=== PATIENT | female | born 1985 | race Caucasian/White ===

== ENCOUNTER 2020-09-15 12:38 | Inpatient (IN) ==
[2020-09-15] MEDS ORDERED: Betamethasone Acet/SodPhos 30 MG/5 ML VIAL IM SCH (12:45)
[2020-09-15] MEDS ORDERED: Naloxone 0.4 MG/ML INJ IVP PRN (12:47)
[2020-09-15] MEDS ORDERED: Metoclopramide 10 MG/2 ML VIAL IVP PRN (12:47)
[2020-09-15] MEDS ORDERED: Famotidine 20 MG/2 ML VIAL IVP PRN (12:47)
[2020-09-15] MEDS ORDERED: Ringers Solution, Lactated 1,000 ML ONE (13:13)
[2020-09-15] MEDS: NIFEdipine 10 MG CAPSULE PO SCH ×2 (13:18→19:47)
[2020-09-15 13:23] LABS: Basophils % 0.2 %; Eosinophils % 0.3 %; Hemoglobin 10.7 g/dL (11.5-15.4); Immature Granulocytes % 0.6 % (0-4); Lymphocytes # 1.2 K/mcL (0.6-4.6); Lymphocytes % 10.5 %; Mean Corpuscular HGB Conc 30.6 g/dL (31.6-35.5); Mean Corpuscular Hemoglobin 24.7 pg (28.0-33.3); Mean Corpuscular Volume 80.6 fL (83.0-100.0); Mean Platelet Volume 9.7 fL (9.4-12.4); Monocytes # 0.5 K/mcL (0.0-1.3); Monocytes % 4.5 %; Neutrophils # 9.3 K/mcL (1.6-8.9); Platelet Count 356 K/mcL (140-400); Red Blood Count 4.34 M/mcL (3.82-4.97); Red Cell Distribution Width 15.2 % (11.5-14.5); Segmented Neutrophils % 83.9 %; White Blood Count 11.1 K/mcL (4.3-11.1)
[2020-09-15] MEDS ORDERED: Epidural Premix (fent/bupiv) 110 ML EP ONE (13:28)
[2020-09-15] MEDS ORDERED: *HR* FentaNYL (PF) 100 MCG/2 ML VIAL ONE (13:29)
[2020-09-15] MEDS ORDERED: Bupivacaine-MPF 0.25% 10 ML VIAL ONE (13:30)
[2020-09-15] MEDS ORDERED: Oxytocin 20 units/ LR 1000 mL 40 UNIT/2,000 ML BAG IVC ONE (13:46)
[2020-09-15 14:09] LABS: Amphetamine Screen,Urine Positive ng/mL (Cutoff=1000); Barbiturate Screen,Urine Negative ng/mL (Cutoff=200); Benzodiazepines Screen,Urine Positive ng/mL (Cutoff=200); Cannabinoid Screen,Urine Positive ng/mL (Cutoff = 50); Cocaine Screen,Urine Positive ng/mL (Cutoff= 300); Opiate Screen,Urine Negative ng/mL (Cutoff=300); Phencyclidine Screen,Urine Negative ng/mL (Cutoff=25)
[2020-09-15 14:11] LABS: Varicella Zoster IgG Antibody Positive
[2020-09-15 14:12] LABS: Rubella IgG Antibody POSITIVE (POSITIVE)
[2020-09-15] MEDS ORDERED: Ketorolac 30 MG/ML VIAL IVP PRN (14:21)
[2020-09-15 14:22] LABS: Hepatitis B Surface Antigen Nonreactive (Nonreactive)
[2020-09-15] MEDS ORDERED: Acetaminophen 325 MG TABLET PO PRN (14:36)
[2020-09-15] MEDS ORDERED: Rho Immune Globulin 1,500 UNIT SYRINGE IM PRN (14:36)
[2020-09-15] MEDS ORDERED: Ibuprofen 600 MG TABLET PO PRN (14:36)
[2020-09-15] MEDS ORDERED: Measles/Mumps/Rubella Vacc 0.5 ML VIAL SQ PRN (14:36)
[2020-09-15] MEDS ORDERED: Oxytocin 20 units/ LR 1000 mL 20 UNIT/1,000 ML BAG IVC SCH (14:45)
[2020-09-15 14:50] LABS: HIV-1&2 Antibody & p24 Ag Nonreactive (Nonreactive)
[2020-09-15] MEDS ORDERED: Melatonin 3 MG TABLET PO SCH (21:00)
[2020-09-16] MEDS: NIFEdipine 10 MG CAPSULE PO SCH ×3 (00:49→09:33)
[2020-09-16] MEDS ORDERED: Prenatal Vit/FA 1 EACH TABLET PO SCH (09:00)
[2020-09-16 09:40] VITALS: BP 115/78
== END 2020-09-16 19:29 | disposition home or self-care (01) | DRG 560 ==
LOC: 1NENULAB 12:38 → 1NENUOBS 16:52
PROVIDERS: ADMIT Student in an Organized Health Care Education/Training Program; ATTEND Student in an Organized Health Care Education/Training Program